=== PATIENT | male | born 1950 | race Caucasian/White ===

== ENCOUNTER 2021-01-05 12:00 | Emergency (ER) | payer OTHER ==
--- NOTE | 2021-01-05 12:58 | EDM.PDOC ---
ED HPI GENERAL MEDICAL PROBLEM - General Stated Complaint: fall Time Seen by Provider: 01/05/21 12:00 Source of Information: Reports: Patient, Family History Limitations: Reports: No Limitations - History of Present Illness INITIAL COMMENTS - FREE TEXT/NARRATIVE: Patient presented to the ED because of facial and head injury when he tripped and fell face down.He sustained an abrasion on the face and a 1.5 cm laceration over the right eyebrow. there was no LOC after the fall. Denies having any headache, nausea,vomiting. Face/Facial Pain Score (Numeric/FACES): 5 - Related Data Allergies Allergy/AdvReac Type Severity Reaction Status Date / Time No Known Allergies Allergy Verified 01/05/21 14:11 Home Meds: Home Meds cephALEXin [Keflex] 500 mg PO Q8H #21 cap 01/05/21 [Rx] ED ROS GENERAL - Review of Systems Review Of Systems: See Below Constitutional: Reports: No Symptoms HEENT: Reports: No Symptoms Respiratory: Reports: No Symptoms Cardiovascular: Reports: No Symptoms Endocrine: Reports: No Symptoms GI/Abdominal: Reports: No Symptoms Musculoskeletal: Reports: No Symptoms Skin: Reports: Wound Neurological: Reports: No Symptoms Psychiatric: Reports: No Symptoms ED EXAM, HEAD INJURY - Physical Exam Exam: See Below Exam Limited By: No Limitations General Appearance: Alert, No Apparent Distress Head: Atraumatic, Normocephalic Nexus Criteria: Posterior, Midline Cervical Tenderness Ears: Normal External Exam, Hearing Grossly Normal, Normal TMs Nose: Normal Inspection, Normal Mucousa, No Blood Throat/Mouth: Normal Inspection, Normal Lips, Normal Teeth, Normal Gums, Normal Oropharynx, Normal Voice, No Airway Compromise Neck: Non-Tender, Full Range of Motion, Normal Alignment, Normal Inspection Respiratory: No Respiratory Distress, Lungs Clear, Normal Breath Sounds, No Accessory Muscle Use, Chest Non-Tender Cardiovascular: Normal Peripheral Pulses, Regular Rate, Rhythm, No Edema, No Gallop GI/Abdominal Exam: Normal Bowel Sounds, Soft, Non-Tender, No Organomegaly, No Distention, No Abnormal Bruit, No Mass Rectal (Males) Exam: Perirectal Abscess Back Exam: Full Range of Motion Extremities: Normal Inspection, Normal Range of Motion, Non-Tender, No Pedal Edema, Normal Capillary Refill Neurologic: manager transition II-XII nml As Tested, No Motor/Sensory Deficits, Alert, Normal Mood/Affect, Oriented x 3 Skin: Normal Color, Warm/Dry ED LACERATION/WOUND & IVETT PROC - Laceration/Wound Repair Right Forehead Lac/wound length in cm: 1.5 Appearance: Superficial Anesthetic Type: Topical Skin Prep: Chlorhexidine (Hibiciens), Saline Closed with: Dermabond Course - Vital Signs Text/Narrative:: Lab,Head and Facial CT, shoulder xray result was reviewed with patient's brother and daughter Daughter is upset that I'm not admitting him. I explained to patient's family that all CT scan,xray,lab were normal and I need to have a good medical reason to keep him in the hospital that required detention care. Daughter said well no one will guide him in taking his medication. I told them that they need to have responsibility with regards to his care. I offered them to have home care assistance and that the family should do their part as well. Stefanie RN went to explain to the patient's family what our plan is. Last Recorded V/S: Last Vital Signs Temp 36.1 C 01/05/21 12:01 Pulse 108 H 01/05/21 12:01 Resp 20 01/05/21 12:01 BP 116/68 01/05/21 12:01 Pulse Ox 93 L 01/05/21 12:01 - Orders/Labs/Meds Orders: Active Orders 24 hr Category Date Time Status UA W/MICROSCOPIC [URIN] Stat Lab 01/05/21 13:14 Ordered Labs: Laboratory Tests 01/05/21 01/05/21 Range/Units 13:22 13:22 WBC 9.7 (3.2-10.1) x10-3/uL RBC 4.14 (3.90-5.90) x10(6)uL Hgb 13.3 (12.9-17.7) g/dL Hct 38.5 (38.3-50.1) % MCV 92.9 (80.8-98.7) fL MCH 32.1 (27.0-33.3) pg MCHC 34.5 (28.7-35.3) g/dL RDW 13.0 (12.4-15.0) % Plt Count 222 (117-477) x10(3)uL MPV 6.2 L (6.7-11.0) fL Neut % (Auto) 85.5 H (40.3-71.8) % Lymph % (Auto) 7.7 L (15.8-45.3) % [place] % (Auto) 5.3 L (5.5-15.2) % Eos % (Auto) 1.2 (0.1-6.8) % Baso % (Auto) 0.3 (0.3-3.8) % Neut # (Auto) 8.3 H (1.7-6.9) x10-3/uL Lymph # (Auto) 0.7 (0.5-4.5) x10-3/uL [place] # (Auto) 0.5 (0.0-1.2) x10-3/uL Eos # (Auto) 0.1 (0.0-0.6) x10-3/uL Baso # (Auto) 0.0 (0.0-0.3) x10-3/uL Sodium 143 (135-145) mmol/L Potassium 4.0 (3.5-5.3) mmol/L Chloride 106 (100-110) mmol/L Carbon Dioxide 26 (21-32) mmol/L BUN 21 H (7-18) mg/dL Creatinine 0.9 (0.70-1.30) mg/dL Est Cr Clr Drug Dosing TNP Estimated GFR (MDRD) > 60 (>60) BUN/Creatinine Ratio 23.3 H (9-20) Glucose 108 (80-116) mg/dL Calcium 8.8 (8.6-10.2) mg/dL Total Bilirubin 1.4 H (0.1-1.3) mg/dL AST 27 H (5-25) IU/L ALT 10 L (12-36) U/L Alkaline Phosphatase 120 H (56-112) IU/L Total Protein 6.9 (6.0-8.0) g/dL Albumin 3.8 (3.2-4.6) g/dL Globulin 3.1 g/dL Albumin/Globulin Ratio 1.2 Meds: Medications Discontinued Medications Generic Name Dose Route Start Last Admin Trade Name Freq PRN Reason Stop Dose Admin Lidocaine HCl 15 ml 01/05/21 14:14 01/05/21 14:43 Lidocaine 2% Viscous Solution 15 Ml Cup PO 01/05/21 14:15 15 ml ONETIME ONE Administration Departure - Departure Time of Disposition: 15:15 Disposition: Home, Self-Care 01 Condition: Good Clinical Impression: Fall, Laceration, Closed head injury - Discharge Information Prescriptions: cephALEXin [Keflex] 500 mg PO Q8H #21 cap Instructions: Head Injury, Adult, Laceration Care, Adult, [id number], Sutures, Nathan, or Adhesive Wound Closure, [id number] Referrals: PCP,Not In Area [Primary Care Provider] - Forms: ED Department Discharge Additional Instructions: Please read discharge instructions on wound,laceration,head injury Keflex 500 mg 3 times daily for 7 days(take after a meal because it can cause an upset stomach) No need to apply an antibiotic ointment the glue is medicated Do not cover the wound because it will create moisture for bacteria to grow Follow up as needed Sepsis Event Note (ED) - Focused Exam Vital Signs: Vital Signs Temp Pulse Resp BP Pulse Ox 01/05/21 12:01 36.1 C 108 H 20 116/68 93 L - My Orders Last 24 Hours: My Active Orders 01/05/21 13:14 UA W/MICROSCOPIC [URIN] Stat - Assessment/Plan Last 24 Hours: My Active Orders 01/05/21 13:14 UA W/MICROSCOPIC [URIN] Stat
--- NOTE | 2021-01-05 14:12 | CT ---
INDICATION: Fall. CT HEAD WITHOUT CONTRAST: Spiral 3.75 mm axial sections were obtained through the brain without contrast with axial, sagittal and coronal reconstructions 01/05/21 - no comparisons. TOTAL EXAM DLP: 1399.62 mGy/cm. Calcifications are noted in the vertebral and internal carotid arteries. There is marked thickening of the lining of the left maxillary antrum, which may be on the basis of chronic sinusitis. Thickening of the lining of the left frontal air cell is also noted to a mild degree. The mastoid air cells appear to be fairly well aerated. No cranial fracture site was identified. Soft tissue swelling and subcutaneous air is noted at the site of the right frontal injury with minimal scalp hematoma noted. Low-density abnormality in the left basal ganglia is compatible with a lacunar infarct. No shift of midline structures or ventricular abnormalities were identified. Patchy decreased density is noted in the white matter compatible with moderate diffuse microvascular disease-type changes. No other abnormal areas of density were identified - no bleeding site or hematoma was seen. IMPRESSION: 1. No definite acute intracranial abnormality. 2. Cerebrovascular disease with white matter changes compatible with microvascular disease-type change and apparent lacunar infarct in the left basal ganglia. There also appears to be some lacunar infarct change in the caudad nucleus on the right. 3. Thickening of the linings, for the most part, the left maxillary antrum and minimally in the left frontal air cell, which may represent a chronic-type sinusitis. 4. Soft tissue swelling with subcutaneous air and small scalp hematoma at the site of laceration, right frontal bone area. Report was called to Dr. Bonilla at 1307 hours, 01/05/21. [facility]
[2021-01-05] MEDS ORDERED: Lidocaine 2% Viscous Solution 15 ML Cup PO ONE (14:14)
--- NOTE | 2021-01-05 14:22 | CT ---
INDICATION: Fall, struck right side above eye, with laceration. CT MAXILLOFACIAL BONES: Spiral 2.5 mm axial sections were obtained through the maxillofacial bones with sagittal and coronal reconstructions 01/05/21 - no comparison. TOTAL EXAM DLP: 778.62 mGy/cm. Marked thickening of the lining of the left maxillary antrum is noted. The maxillary infundibulum on the left is opacified and is partly patent on the right. There is also some thickening of the lining of the left maxillary antrum. No evidence of a cranial fracture site was noted. No orbital fracture site was seen. Subcutaneous emphysema with scalp hematoma noted right frontal area post laceration in that region. No evidence of a facial bone fracture was identified. No cranial fracture site was seen. IMPRESSION: 1. Scalp hematoma with subcutaneous air post laceration right frontal area. 2. No acute fracture with orbits appearing intact. 3. Possible chronic sinusitis left maxillary with relatively minimal findings at the base of the left frontal sinus. Report was called to Dr. Bonilla at 1307 hours, 01/05/21. [facility]
--- NOTE | 2021-01-05 15:22 | CR ---
INDICATION: Fall, bilateral shoulder pain. BILATERAL SHOULDERS : Three views of the right and left shoulders revealed degenerative changes at both AC joints with narrowing of the joints, more severe on the right than left. Moderate degenerative changes are noted at the glenohumeral joints, more prominent on the left than right. The joint spaces were not well delineated. However, no evidence of an acute fracture or dislocation was identified. Adjacent ribs were unremarkable. IMPRESSION: 1. No acute fracture or dislocation identified. 2. 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 MTDD
== END 2021-01-05 15:40 | disposition home or self-care (01) ==
LOC: FB.ED 12:00
DX: S01.81XA Laceration without foreign body of other part of head, initial encounter (principal); W01.0XXA Fall on same level from slipping, tripping and stumbling without subsequent striking against object, initial encounter
CPT/HCPCS: 12011; 36415; 70450; 70486; 73030; 80053; 85025; 99284; A9270; 70488

== ENCOUNTER 2024-02-03 10:26 | Emergency (ER) | payer OTHER ==
[2024-02-03] MEDS ORDERED: Sodium Chloride 0.9% 10 ML Syringe FLUSH PRN (10:44)
[2024-02-03 11:15] LABS: BASOPHILS PERCENT AUTO 0.2 % (0.3-3.8); BLOOD UREA NITROGEN,BUN 20 mg/dL (7-18); BUN/CREATININE RATIO 22.2 (9-20); CALCIUM 8.9 mg/dL (8.6-10.2); CARBON DIOXIDE,CO2 31 mmol/L (21-32); CHLORIDE,CL 106 mmol/L (100-110); CREATININE 0.9 mg/dL (0.70-1.30); EOSINOPHILS ABSOLUTE AUTO 0.3 x10-3/uL (0.0-0.6); EOSINOPHILS PERCENT AUTO 3.1 % (0.1-6.8); EST CRCL DRUG DOSING (CG) 80.23 mL/min; ESTIMATED GFR 90 mL/min (>60); GLUCOSE RANDOM 105 mg/dL (80-116); HEMATOCRIT 39.2 % (38.3-50.1); HEMOGLOBIN 13.4 g/dL (12.9-17.7); LYMPHOCYTES ABSOLUTE AUTO 1.1 x10-3/uL (0.5-4.5); MEAN CORPUSCULAR HEMOGLOBIN 32.3 pg (27.0-33.3); MEAN CORPUSCULAR HGB CONC 34.3 g/dL (28.7-35.3); MEAN CORPUSCULAR VOLUME 94.2 fL (80.8-98.7); MEAN PLATELET VOLUME 6.8 fL (6.7-11.0); MONOCYTES ABSOLUTE AUTO 0.5 x10-3/uL (0.0-1.2); NEUTROPHILS ABSOLUTE AUTO 6.5 x10-3/uL (1.7-6.9); NEUTROPHILS PERCENT AUTO 77.7 % (40.3-71.8); PLATELET COUNT,PLT 204 x10(3)uL (117-477); POTASSIUM,K 4.3 mmol/L (3.5-5.3); RED BLOOD CELL COUNT 4.16 x10(6)uL (3.90-5.90); RED CELL DISTRIBUTION WIDTH 13.7 % (12.4-15.0); SODIUM,NA 146 mmol/L (135-145); WHITE BLOOD CELL COUNT,WBC 8.4 x10-3/uL (3.2-10.1)
[2024-02-03 11:21] LABS: A/G RATIO 1.2; ALANINE AMINOTRANSFERASE,ALT 12 U/L (12-36); ALBUMIN 3.7 g/dL (3.2-4.6); ALKALINE PHOSPHATASE 79 IU/L (56-112); ASPARTATE AMNIOTRANSFERASE,AST 11 IU/L (5-25); BILIRUBIN TOTAL 0.5 mg/dL (0.1-1.3); PROTEIN TOTAL,TP 6.8 g/dL (6.0-8.0)
[2024-02-03 11:25] LABS: LACTIC ACID 1.5 mmol/L (0.4-2.0)
[2024-02-03] MEDS: Sodium Chloride 0.9% 1,000 ML IV ONE (11:36)
[2024-02-03 11:38] LABS: BILIRUBIN,URINE NEGATIVE (NEGATIVE); GLUCOSE,URINE NORMAL (NORMAL); KETONES,URINE 15 mg/dL (NEGATIVE); LEUKOCYTE ESTERASE,URINE NEGATIVE (NEGATIVE); NITRITE,URINE NEGATIVE (NEGATIVE); OCCULT BLOOD,URINE NEGATIVE (NEGATIVE); PROTEIN,URINE NEGATIVE (NEGATIVE); UROBILINOGEN,URINE NORMAL (NEGATIVE)
[2024-02-03 11:39] LABS: APPEARANCE,URINE CLEAR (CLEAR); COLOR,URINE YELLOW (YELLOW)
== END 2024-02-03 13:55 | disposition home or self-care (01) ==
LOC: FB.ED 10:26
DX: S60.041A Contusion of right ring finger without damage to nail, initial encounter (principal); W18.30XA Fall on same level, unspecified, initial encounter; G20.B1 Parkinson's disease with dyskinesia, without mention of fluctuations
CPT/HCPCS: 36415; 80053; 81003; 83605; 85025; 86140; 96360; 99285; J7030

== ENCOUNTER 2025-01-06 18:38 | Observation (INO) | payer OTHER, MEDICARE ==
[2025-01-06 19:44] LABS: BASOPHILS ABSOLUTE AUTO 0.0 x10-3/uL (0.0-0.3); BASOPHILS PERCENT AUTO 0.5 % (0.3-3.8); EOSINOPHILS ABSOLUTE AUTO 0.3 x10-3/uL (0.0-0.6); EOSINOPHILS PERCENT AUTO 4.7 % (0.1-6.8); LYMPHOCYTES ABSOLUTE AUTO 1.2 x10-3/uL (0.5-4.5); LYMPHOCYTES PERCENT AUTO 18.5 % (15.8-45.3); MEAN PLATELET VOLUME 6.9 fL (6.7-11.0); MONOCYTES ABSOLUTE AUTO 0.5 x10-3/uL (0.0-1.2); MONOCYTES PERCENT AUTO 6.8 % (5.5-15.2); NEUTROPHILS ABSOLUTE AUTO 4.7 x10-3/uL (1.7-6.9); NEUTROPHILS PERCENT AUTO 69.5 % (40.3-71.8); PLATELET COUNT,PLT 199 x10(3)uL (117-477); RED BLOOD CELL COUNT 4.09 x10(6)uL (3.90-5.90); RED CELL DISTRIBUTION WIDTH 13.2 % (12.4-15.0); WHITE BLOOD CELL COUNT,WBC 6.7 x10-3/uL (3.2-10.1)
[2025-01-06 19:48] LABS: BLOOD UREA NITROGEN,BUN 24 mg/dL (7-18); CARBON DIOXIDE,CO2 29 mmol/L (21-32); CHLORIDE,CL 106 mmol/L (100-110); CREATININE 0.9 mg/dL (0.70-1.30); ESTIMATED GFR 90 mL/min (>60); GLUCOSE RANDOM 103 mg/dL (80-116); POTASSIUM,K 4.0 mmol/L (3.5-5.3); SODIUM,NA 142 mmol/L (135-145)
[2025-01-06 19:54] LABS: A/G RATIO 1.3; ALANINE AMINOTRANSFERASE,ALT 9 U/L (12-36); ASPARTATE AMNIOTRANSFERASE,AST 14 IU/L (5-25); BILIRUBIN TOTAL 0.6 mg/dL (0.1-1.3); PROTEIN TOTAL,TP 6.7 g/dL (6.0-8.0)
[2025-01-06] MEDS: Diphtheria,Pertussis(Acell),Tetanus Vaccine 0.5 ML Syringe IM ONE (19:57)
[2025-01-06 20:42] LABS: GLUCOSE,URINE NORMAL (NORMAL); OCCULT BLOOD,URINE NEGATIVE (NEGATIVE)
[2025-01-06 20:46] LABS: APPEARANCE,URINE CLEAR (CLEAR)
[2025-01-07] MEDS ORDERED: Sennosides/Docusate Sodium 50-8.6 MG Tab PO PRN (11:42)
[2025-01-08 06:46] LABS: BASOPHILS ABSOLUTE AUTO 0.0 x10-3/uL (0.0-0.3); BASOPHILS PERCENT AUTO 0.6 % (0.3-3.8); EOSINOPHILS ABSOLUTE AUTO 0.3 x10-3/uL (0.0-0.6); EOSINOPHILS PERCENT AUTO 6.4 % (0.1-6.8); LYMPHOCYTES ABSOLUTE AUTO 1.1 x10-3/uL (0.5-4.5); LYMPHOCYTES PERCENT AUTO 23.0 % (15.8-45.3); MEAN PLATELET VOLUME 6.5 fL (6.7-11.0); MONOCYTES ABSOLUTE AUTO 0.4 x10-3/uL (0.0-1.2); MONOCYTES PERCENT AUTO 8.3 % (5.5-15.2); NEUTROPHILS ABSOLUTE AUTO 2.9 x10-3/uL (1.7-6.9); NEUTROPHILS PERCENT AUTO 61.7 % (40.3-71.8); PLATELET COUNT,PLT 180 x10(3)uL (117-477); RED BLOOD CELL COUNT 3.91 x10(6)uL (3.90-5.90); RED CELL DISTRIBUTION WIDTH 13.5 % (12.4-15.0); WHITE BLOOD CELL COUNT,WBC 4.7 x10-3/uL (3.2-10.1)
[2025-01-08 06:54] LABS: BLOOD UREA NITROGEN,BUN 18 mg/dL (7-18); CARBON DIOXIDE,CO2 29 mmol/L (21-32); CHLORIDE,CL 107 mmol/L (100-110); CREATININE 0.6 mg/dL (0.70-1.30); EST CRCL DRUG DOSING (CG) 111.53 mL/min; ESTIMATED GFR 101 mL/min (>60); GLUCOSE RANDOM 106 mg/dL (80-116); POTASSIUM,K 3.7 mmol/L (3.5-5.3); SODIUM,NA 140 mmol/L (135-145)
[2025-01-08] MEDS: Cholecalciferol (Vitamin D3) 25 MCG Tab PO SCH (09:14)
== END 2025-01-08 13:10 | disposition home or self-care (01) ==
LOC: FB.ED 18:38 → FB.MS 21:58
PROVIDERS: ADMIT Internal Medicine; ATTEND Internal Medicine
DX: S60.222A Contusion of left hand, initial encounter (principal); S60.512A Abrasion of left hand, initial encounter; S00.81XA Abrasion of other part of head, initial encounter; R53.1 Weakness; G20.B1 Parkinson's disease with dyskinesia, without mention of fluctuations; R41.89 Other symptoms and signs involving cognitive functions and awareness; B35.6 Tinea cruris; E78.00 Pure hypercholesterolemia, unspecified; Z79.899 Other long term (current) drug therapy; W19.XXXA Unspecified fall, initial encounter
CPT/HCPCS: 36415; 70450; 72125; 73130; 80048; 80053; 81003; 83605; 83735; 84484; 85025; 86140; 90471; 90715; 93005; 96372; 97161; 97165; 99222; 99238; 99285; A9270; G0378; J1650